=== PATIENT | male | born 1970 | race Caucasian/White ===

== ENCOUNTER 2024-08-20 06:22 | Day surgery (SDC) | payer OTHER, SELFPAY ==
[2024-08-20 08:14] LABS: Glucose - Point of Care 131 mg/dl (70-99)
== END 2024-08-20 11:02 | disposition home or self-care (01) ==
LOC: GI 06:22
PROVIDERS: ATTENDING PHYSICIAN Internal Medicine Gastroenterology
DX: Z12.11 Encounter for screening for malignant neoplasm of colon (principal); K57.30 Diverticulosis of large intestine without perforation or abscess without bleeding; K64.8 Other hemorrhoids; K22.89 Other specified disease of esophagus; K29.70 Gastritis, unspecified, without bleeding; K31.89 Other diseases of stomach and duodenum; D12.2 Benign neoplasm of ascending colon; K63.5 Polyp of colon; K21.00 Gastro-esophageal reflux disease with esophagitis, without bleeding
CPT/HCPCS: 45385; 45380; 43239; 82962; 88305; 88342

== ENCOUNTER 2024-10-29 06:23 | Day surgery (SDC) | payer OTHER, SELFPAY ==
[2024-10-29 08:16] LABS: Glucose - Point of Care 171 mg/dl (70-99)
[2024-10-29 08:29] VITALS: BMI 31.0
[2024-10-29 08:30] VITALS: BP 136/91; BMI 31.0
[2024-10-29 08:31] VITALS: BMI 31.0
[2024-10-29 10:23] LABS: Glucose - Point of Care 132 mg/dl (70-99)
[2024-10-29 11:56] VITALS: BP 114/80
[2024-10-29 12:00] VITALS: BP 116/83
[2024-10-29 12:15] VITALS: BP 122/86
[2024-10-29 12:30] VITALS: BP 131/92
== END 2024-10-29 12:40 | disposition home or self-care (01) ==
LOC: SDS 06:23
PROVIDERS: ATTENDING PHYSICIAN Internal Medicine Gastroenterology
DX: K86.9 Disease of pancreas, unspecified (principal); K31.7 Polyp of stomach and duodenum; K22.89 Other specified disease of esophagus; K31.89 Other diseases of stomach and duodenum
CPT/HCPCS: 43254; 82962; 88305